=== PATIENT | female | born 1995 | race Caucasian/White ===

== ENCOUNTER 2017-05-04 21:03 | Emergency (ER) | payer SELFPAY ==
[~2017-05-04] VITALS: Ht 167.6 cm; Wt 117.1 kg
[~2017-05-04 21:03] MED LIST: PREN1TAB49 PO
[2017-05-04 21:20] VITALS: Ht 167.6 cm; Wt 117.1 kg
== END 2017-05-05 | disposition left against medical advice (07) ==
LOC: FTE 21:03
DX: Z53.21 Procedure and treatment not carried out due to patient leaving prior to being seen by health care provider (principal)

== ENCOUNTER 2018-02-07 21:38 | Emergency (ER) | END 2018-02-08 01:50 | disposition home or self-care (01) ==